=== PATIENT | female | born 1955 | race Caucasian/White ===

== ENCOUNTER 2017-11-26 07:27 | Emergency (ER) | payer OTHER ==
[2017-11-26 07:33] VITALS: BP 126/87
[2017-11-26] MEDS ORDERED: LET GEL TOPICAL 1 EA SYR TP ONE ×2 (07:41→07:50)
--- NOTE | 2017-11-26 07:59 | EDPHY ---
H & P Stated Complaint: LACERATION TO LEFT CORTEZ ON ROCK WALL Time Seen by Provider: 11/26/17 07:42 HPI/ROS: CHIEF COMPLAINT: Laceration HISTORY OF PRESENT ILLNESS: The patient is a 62-year-old female who comes to the emergency department complaining of a laceration to her left cortez. She states that she bumped it on rocks yesterday while rock climbing. This was just under 12 hr ago. She denies other injuries REVIEW OF SYSTEMS: Constitutional: denies: chills, fever, recent illness, recent injury EENTM: denies: blurred vision, double vision, nose congestion Respiratory: denies: cough, shortness of breath Cardiac: denies: chest pain, irregular heart rate, lightheadedness, palpitations Gastrointestinal/Abdominal: denies: abdominal pain, diarrhea, nausea, vomiting, blood streaked stools Genitourinary: denies: dysuria, frequency, hematuria, pain Musculoskeletal: denies: joint pain, muscle pain Skin: See HPI Neurological: denies: headache, numbness, paresthesia, tingling, dizziness, weakness Hematologic/Lymphatic: denies: blood clots, easy bleeding, easy bruising Immunologic/allergic: denies: HIV/AIDS, transplant EXAM: GENERAL: Well-appearing, well-nourished and in no acute distress. HEAD: Atraumatic, normocephalic. EYES: Pupils equal round and reactive to light, extraocular movements intact, sclera anicteric, conjunctiva are normal. ENT: TMs normal, nares patent, oropharynx clear without exudates. Moist mucous membranes. NECK: Normal range of motion, supple without lymphadenopathy or JVD. LUNGS: Breath sounds clear to auscultation bilaterally and equal. No wheezes rales or rhonchi. HEART: Regular rate and rhythm without murmurs, rubs or gallops. ABDOMEN: Soft, nontender, normoactive bowel sounds. No guarding, no rebound. No masses appreciated. BACK: No CVA tenderness, no spinal tenderness, step-offs or deformities EXTREMITIES: Normal range of motion, no pitting or edema. No clubbing or cyanosis. NEUROLOGICAL: Cranial nerves II through XII grossly intact. Normal speech, normal gait. 5/5 strength, normal movement in all extremities, normal sensation PSYCH: Normal mood, normal affect. SKIN: Gaping laceration to left cortez approximately 1.5 cm in length. Bleeding controlled. No obvious contamination. Source: Patient Exam Limitations: No limitations - Personal History Current Tetanus Diphtheria and Acellular Pertussis (TDAP): Unsure Tetanus Vaccine Date: < 10 years - Medical/Surgical History Hx Asthma: No Hx Chronic Respiratory Disease: No Hx Diabetes: No Hx Cardiac Disease: No Hx Renal Disease: No Hx Cirrhosis: No Hx Alcoholism: No Hx HIV/AIDS: No Hx Splenectomy or Spleen Trauma: No Other PMH: breast cancer, migraines, right lumpectomy with wedge resection, pelvic fracture, herniated cervical discs, L4, L5 fracture, ETHMOID ARTERIAL BLEED - Family History Significant Family History: No pertinent family hx - Social History Smoking Status: Never smoked Alcohol Use: Sober Constitutional: Initial Vital Signs Temperature (C) 36.5 C 11/26/17 07:29 Heart Rate 76 11/26/17 07:29 Respiratory Rate 16 11/26/17 07:29 Blood Pressure 126/87 H 11/26/17 07:29 O2 Sat (%) 97 11/26/17 07:29 O2 Delivery Mode Room Air Allergies/Adverse Reactions: cephalexin monohydrate [From Keflex] Allergy (Verified 11/26/17 07:34) Home Medications: Medication Instructions Recorded Herbals/Supplements -Info Only 1 ea PO DAILY 06/07/15 Multivitamins [Multivitamin (*)] 1 each PO DAILY 06/07/15 Acetaminophen/ASA/Caffeine 1 each PO DAILY PRN 04/17/16 [Excedrin Tablet (*)] Cholecalciferol Vit D3 [Vitamin D3 5,000 units PO DAILY 04/17/16 (*)] Vitamin B Complex [B Complex] 1 each PO DAILY 04/17/16 ZOLMitriptan [Zomig 2.5MG (*)] 5 mg PO DAILY PRN 04/17/16 ARMOUR THYROID 11/26/17 Medical Decision Making Procedures: Procedure: Laceration repair. Verbal consent was obtained from the patient. The 1.5 cm left cortez laceration was anesthetized with 1% lidocaine with epi and bicarbonate locally infiltrated. The wound was irrigated copiously according to protocol, draped and explored to its base. It was approximately 1/2 cm deep. There were no deep structures involved. No tendon, nerve, or vascular injury was identified when explored through full range of motion. No foreign body was identified. The wound was repaired with 5.0 Prolene, 3 sutures, interrupted. The wound repair was simple without wound margin revisement or multiple flap alignment. The procedure was performed by myself. A dressing was then placed with sterile gauze and bacitracin. ED Course/Re-evaluation: Patient tolerated laceration repair well. We discussed suture care and removal in 10 days. We discussed indications for returning. Differential Diagnosis: Partial list of the Differential diagnosis considered include but were not limited to; laceration, avulsion, contamination and although unlikely based on the history and physical exam, I also considered fracture, nerve injury, vascular injury. I discussed these differential diagnoses and the plan with the patient as well as the usual and expected course. The patient understands that the diagnosis is provisional and that in medicine we are not always correct and that further workup is often warranted. Usual and customary warnings were given. All of the patient's questions were answered. The patient was instructed to return to the emergency department should the symptoms at all worsen or return, otherwise to followup with the physician as we discussed. - Data Points Medications Given: Discontinued Medications Tetracaine/Epinephrine/Lidocaine (Let Gel Topical) 1 ea TP EDNOW ONE Stop: 11/26/17 07:51 Last Admin: 11/26/17 07:51 Dose: 1 ea Departure - Departure Disposition: Home, Routine, Self-Care Clinical Impression: Laceration Condition: Fair Instructions: Care For Your Stitches (ED), Laceration (DC) Additional Instructions: Have your stitches removed in 10 days Referrals: Jessica Awad MD [Primary Care Provider] - As per Instructions
== END 2017-11-26 08:25 | disposition home or self-care (01) ==
PROC: 0HQLXZZ Repair Left Lower Leg Skin, External Approach (ICD-10-PCS; principal; 2017-11-26)
DX: S81.812A Laceration without foreign body, left lower leg, initial encounter (principal); W22.8XXA Striking against or struck by other objects, initial encounter; Y99.8 Other external cause status; Y93.31 Activity, mountain climbing, rock climbing and wall climbing; Z85.3 Personal history of malignant neoplasm of breast

== ENCOUNTER → 2018-07-08 | Outpatient (CLI) | payer OTHER | LOC: BMCIMAGING 11:06 | DX: Z13.820 Encounter for screening for osteoporosis (principal); M85.88 Other specified disorders of bone density and structure, other site; Z79.890 Hormone replacement therapy; Z79.899 Other long term (current) drug therapy ==

== ENCOUNTER → 2018-10-04 | Outpatient (CLI) | payer OTHER | LOC: EMCIMAGING 11:56 | PROVIDERS: ATTEND Internal Medicine | DX: R92.8 Other abnormal and inconclusive findings on diagnostic imaging of breast (principal) | CPT/HCPCS: 749606PN; 77066-PN ==